=== PATIENT | male | born 1970 | race Caucasian/White ===

== ENCOUNTER 2019-10-29 23:13 | Emergency (ER) | payer OTHER ==
[2019-10-29 23:35] VITALS: TEMP 99.1
[2019-10-29] MEDS ORDERED: AMOXIC-POT CLAV 875MG STARTER PACK 2 TAB BTL PO STA (23:54)
--- NOTE | 2019-10-30 00:31 | XR ---
EXAMINATION TYPE: XR hand complete RT DATE OF EXAM: 10/30/2019 COMPARISON: NONE HISTORY: Dogbite. Pain. TECHNIQUE: 3 views FINDINGS: Metacarpals are intact. I see no fracture nor dislocation. Joint spaces appear normal. Soft tissues show possible laceration at the second MP joint. IMPRESSION: Possible laceration. No fracture seen.
--- NOTE | 2019-10-30 00:38 | ED ---
Animal Bite HPI - General Chief Complaint: Animal Bite Stated Complaint: Dog bite, RT hand Time Seen by Provider: 10/29/19 23:26 Source: patient Mode of arrival: ambulatory Limitations: no limitations - History of Present Illness Initial Comments: 49-year-old male patient presents to the emergency department today for evaluation of multiple bite wounds to the right hand. Patient states that he was camping and a friend's dog bit his hand. States that he did cleanse the area with soap and water and applied dressings and antibiotic ointment. States injury occurred approximately 6-7 hours ago. States he is having some numbness to the tip of the right fourth digit so he decided to come in for further evaluation. He denies any difficulty with range of motion of the fingers or hand. Denies any other injuries. States his tetanus vaccine is up-to-date. States the dog is up-to-date on immunizations as well. Patient denies any headache, neck pain, back pain, chest pain, shortness of breath, dizziness, weakness, abdominal pain, nausea, vomiting, or difficulties with bowel movements or urination. - Related Data Home Medications Medication Instructions Recorded Confirmed Rosuvastatin Calcium [Crestor] 5 mg PO DAILY 10/29/19 10/29/19 Previous Rx's Medication Instructions Recorded Amoxic-Pot Clav 875-125Mg 1 tab PO Q12HR #20 tablet 10/30/19 [Augmentin 875-125] Allergies Allergy/AdvReac Type Severity Reaction Status Date / Time No Known Allergies Allergy Verified 10/29/19 23:28 Review of Systems ROS Statement: Those systems with pertinent positive or pertinent negative responses have been documented in the HPI. ROS Other: All systems not noted in ROS Statement are negative. Past Medical History Past Medical History: Hyperlipidemia History of Any Multi-Drug Resistant Organisms: None Reported Additional Past Surgical History / Comment(s): Eye surgery. Past Psychological History: No Psychological Hx Reported Smoking Status: Former smoker Past Alcohol Use History: Occasional Past Drug Use History: None Reported General Exam Limitations: no limitations General appearance: alert, in no apparent distress, other (This is a well- developed, well-nourished adult male patient in no acute distress. Vital signs upon presentation are pulse 95, respirations 18, blood pressure 154/97, pulse ox 97% on room air.) Respiratory exam: Present: normal lung sounds bilaterally. Absent: respiratory distress, wheezes, rales, rhonchi, stridor Cardiovascular Exam: Present: regular rate, normal rhythm, normal heart sounds. Absent: systolic murmur, diastolic murmur, rubs, gallop, clicks Extremities exam: Present: full ROM, normal capillary refill, other (Patient has multiple punctures and lacerations noted over the fingers on the right hand. There is a 2cm laceration noted over the medial aspect of the right 2nd mcp joint, a 3cm laceration over the palmar surface of the index finger over the PIP joint. Patient exhibits full range of motion with him without resistance. Skin is otherwise pink, warm, and dry. Cap refills less than 3 seconds. Radial pulses 2+ and equal bilaterally.). Absent: normal inspection, tenderness, pedal edema, joint swelling, calf tenderness Neurological exam: Present: alert, oriented X3, CN II-XII intact Psychiatric exam: Present: normal affect, normal mood Skin exam: Present: warm, dry, intact, normal color. Absent: rash Course Vital Signs 10/29/19 10/29/19 10/30/19 23:20 23:28 01:03 Temperature 99.1 F Pulse Rate 95 82 Respiratory 18 16 Rate Blood Pressure 154/97 140/80 O2 Sat by Pulse 97 95 Oximetry Medical Decision Making - Medical Decision Making 49-year-old male patient presented to the emergency department today for evaluation of dog bite to the right hand. Physical examination did reveal multiple puncture wounds and lacerations noted over the second through fifth digits on the right hand. Wounds had been cleansed and injury occurred about 6- 7 hours ago. Given the nature of the injury and location we will not close the lacerations due to increased risk of infection. He will be started on Augmentin. He is instructed to follow-up with orthopedic specialty for further evaluation. Nursing staff again cleansed the wounds, applied bacitracin, and applied dressings. Return parameters were discussed in detail. He verbalizes understanding and agrees with this plan. - Radiology Data Radiology results: report reviewed, image reviewed 3 views of the right hand are obtained. Report was reviewed in its entirety. Impression by Dr. Ledezma shows possible laceration. No fracture seen. Disposition Clinical Impression: Dog bite of hand Disposition: HOME SELF-CARE Instructions (If sedation given, give patient instructions): Animal Bite (ED) Additional Instructions: Complete antibiotic prescription in full. Take tylenol and motrin for pain control. Follow up with legal process specialist for further evaluation as soon as possible. Return to the emergency department for any new, worsening, or concerning symptoms. Prescriptions: Amoxic-Pot Clav 875-125Mg [Augmentin 875-125] 1 tab PO Q12HR #20 tablet Is patient prescribed a controlled substance at d/c from ED?: No Referrals: Nonstaff,Physician [Primary Care Provider] - 1-2 days Time of Disposition: 00:38
[2019-10-30 01:04] VITALS: BP 140/80; PULSE 82; RESP 16
== END 2019-10-30 01:06 | disposition home or self-care (01) ==
LOC: EC 23:13
DX: S61.210A Laceration without foreign body of right index finger without damage to nail, initial encounter (principal); S61.212A Laceration without foreign body of right middle finger without damage to nail, initial encounter; S61.214A Laceration without foreign body of right ring finger without damage to nail, initial encounter; S61.216A Laceration without foreign body of right little finger without damage to nail, initial encounter; E78.5 Hyperlipidemia, unspecified; Z79.899 Other long term (current) drug therapy; Z87.891 Personal history of nicotine dependence; W54.0XXA Bitten by dog, initial encounter
CPT/HCPCS: 99283